=== PATIENT | female | born 1995 | race Caucasian/White ===

== ENCOUNTER 2019-09-27 12:45 | Emergency (ER) | payer BC, MEDICAID ==
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
[2019-09-27 13:05] VITALS: BP 127/62; PULSE 101
== END 2019-09-27 13:48 | disposition home or self-care (01) ==
LOC: CC.ED 12:45
DX: S20.211A Contusion of right front wall of thorax, initial encounter (principal); Z88.8 Allergy status to other drugs, medicaments and biological substances; Y04.8XXA Assault by other bodily force, initial encounter
CPT/HCPCS: 99283